=== PATIENT | female | born 1985 | race Hispanic/Latino ===

== ENCOUNTER 2017-12-31 08:24 | Outpatient (CLI) | payer MEDICAID ==
--- NOTE | 2017-12-31 10:30 | ULT ---
ULTRASOUND ABDOMEN COMPLETE: Date: 12/31/17 HISTORY: 32-year-old female with generalized abdominal pain, R10.9. FINDINGS: Liver: Normal size. Echogenicity within normal limits. Gallbladder: Filled with large number of gallstones, each on the order of 10-15 mm. Normal wall thick ness of 2 mm. No mural edema or pericholecystic fluid. Common duct: 4 mm. Spleen: No splenomegaly. Pancreas: Poorly visualized. Kidneys: No hydronephrosis. Abdominal aorta: No aneurysm. Inferior vena cava: Poorly visualized. No major interval change identified compared to 02/12/17. IMPRESSION: Cholelithiasis. JN R POS: OFF
== END 2017-12-31 08:25 | disposition home or self-care (01) ==
LOC: ULT 08:24
PROVIDERS: ATTEND Family Medicine
DX: R10.9 Unspecified abdominal pain (principal); K80.20 Calculus of gallbladder without cholecystitis without obstruction
CPT/HCPCS: 76700

== ENCOUNTER 2018-02-13 12:19 | Emergency (ER) | payer MEDICAID, SELFPAY ==
[2018-02-13 12:50] LABS: #Basophils 0.1 thou/uL (0.0-0.2); #Eosinphils 0.1 thou/uL (0.0-0.7); #Monocytes 0.3 thou/uL (0.11-0.59); #Neutrophils 4.5 thou/uL (1.40-6.50); %Basophils 1.2 % (0.0-1.0); %Lymphocytes 29.1 % (21.0-51.0); %Neutrophils 63.8 % (42.0-75.0); Hemoglobin 14.1 g/dL (12.0-16.0); Mean Corpuscular HGB CONC 33.2 g/dL (32.0-36.0); Mean Corpuscular Hemoglobin 33.6 pg (27.0-31.0); Mean Platelet Volume 6.7 fL (7.4-10.4); Platelet Count 306 thou/uL (130-400)
[2018-02-13 13:08] LABS: ALT (SGPT) 24 U/L (8-55); AST (SGOT) 19 U/L (5-34); Albumin 4.6 g/dL (3.5-5.0); Alkaline Phosphatase 127 U/L (40-150); Anion Gap 10 mmol/L (10-20); BUN (Urea Nitrogen) 13 mg/dL (7.0-18.7); Bilirubin, Total 0.8 mg/dL (0.2-1.2); CK (CPK) 76 U/L (29-168); Calc. Creatinine Clearance 0 mL/min (70-130); Calcium 9.3 mg/dL (7.8-10.44); Carbon Dioxide 24 mmol/L (22-29); Chloride 107 mmol/L (98-107); Estimated GFR-MDRD Greater than 90; Glucose 101 mg/dL (70-105); Potassium 3.9 mmol/L (3.5-5.1); Protein, Total 7.6 g/dL (6.0-8.3); Sodium 137 mmol/L (136-145)
[2018-02-13 13:12] LABS: CKMB 0.5 ng/mL (0-6.6); Troponin I Less than 0.010 ng/mL (< 0.028)
--- NOTE | 2018-02-13 13:39 | RAD ---
PORTABLE CHEST 1 VIEW: DATE: 02/13/18. TIME: 12:55 p.m. HISTORY: Chest pain. FINDINGS: The heart size is normal. The lungs are expanded without focal areas of consolidation, pneumothorax, or pleural effusions. IMPRESSION: No radiographic evidence of acute cardiopulmonary process. POS: OFF
[2018-02-13 16:33] LABS: Troponin I Less than 0.010 ng/mL (< 0.028)
== END 2018-02-13 17:38 | disposition home or self-care (01) ==
LOC: ERS 12:19
DX: K21.9 Gastro-esophageal reflux disease without esophagitis (principal); R07.9 Chest pain, unspecified; F32.9 Major depressive disorder, single episode, unspecified; F41.9 Anxiety disorder, unspecified; Z79.899 Other long term (current) drug therapy
CPT/HCPCS: 36415; 71045; 80053; 82553; 84484; 85025; 93005